=== PATIENT | female | born 1975 | race Caucasian/White ===

== ENCOUNTER 2021-08-25 05:25 | Inpatient (IN) | payer BC ==
[2021-08-25] MEDS ORDERED: Scopolamine 1.5 MG Transdermal Patch TOP SCH (05:45)
[2021-08-25] MEDS ORDERED: Celecoxib 200 MG Cap PO ONE (05:45)
[2021-08-25] MEDS ORDERED: Acetaminophen 500 MG Tab PO ONE (05:45)
[2021-08-25] MEDS ORDERED: Dextrose 5%-Lactated Ringers 1,000 ML IV SCH ×2 (06:00→10:45)
[2021-08-25] MEDS ORDERED: Lidocaine 1% with EPINEPHrine 1:100,000 50 ML MDV ONE (06:52)
[2021-08-25] MEDS ORDERED: Bupivacaine 0.5% 50 ML MDV ONE (06:52)
[2021-08-25] MEDS ORDERED: Meropenem 500 MG SDV ONE (06:52)
[2021-08-25] MEDS ORDERED: cefOXitin 2 GM Vial ONE (06:56)
[2021-08-25] MEDS ORDERED: Succinylcholine 200 MG/10 ML MDV ONE (07:07)
[2021-08-25] MEDS ORDERED: Rocuronium 50 MG/5 ML Vial ONE (07:07)
[2021-08-25] MEDS ORDERED: diphenhydrAMINE 50 MG/ML SDV ONE (07:07)
[2021-08-25] MEDS ORDERED: Dexamethasone 4 MG/ML SDV ONE (07:07)
[2021-08-25] MEDS ORDERED: Propofol 200 MG/20 ML SDV ONE (07:07)
[2021-08-25] MEDS ORDERED: Ondansetron 4 MG/2 ML SDV ONE (07:07)
[2021-08-25] MEDS ORDERED: Glycopyrrolate 0.2 MG/ML 5 ML MDV ONE (07:07)
[2021-08-25] MEDS ORDERED: Neostigmine Methylsulfate 1 MG/ML 5 ML Syringe ONE (07:07)
[2021-08-25] MEDS ORDERED: fentaNYL 250 MCG/5 ML SDV ONE (07:09)
[2021-08-25] MEDS ORDERED: cefOXitin 2 GM in Sodium Chloride 0.9% 50 ML IV ONE (07:15)
[2021-08-25] MEDS ORDERED: Ketamine 500 MG/5 ML MDV IV SCH (07:30)
[2021-08-25] MEDS ORDERED: Ketamine 19 MG in Sodium Chloride 0.9% 19.81 ML IV SCH (07:30)
[2021-08-25] MEDS ORDERED: Cyclobenzaprine 10 MG Tab PO PRN (10:31)
[2021-08-25] MEDS ORDERED: Melatonin 3 MG Tab PO PRN (10:38)
[2021-08-25] MEDS ORDERED: Morphine 2 MG/ML SYRINGE IVPUSH PRN (11:00)
[2021-08-25] MEDS ORDERED: Labetalol 20 MG/4 ML Syringe IVPUSH PRN (11:00)
[2021-08-25] MEDS ORDERED: diphenhydrAMINE 50 MG/ML SDV IVPUSH PRN (11:00)
[2021-08-25] MEDS ORDERED: Morphine 4 MG/ML Syringe IVPUSH PRN (11:00)
[2021-08-25] MEDS ORDERED: Ondansetron 4 MG/2 ML SDV IVPUSH PRN (11:00)
[2021-08-25] MEDS ORDERED: oxyCODONE 5 MG Tab PO PRN (11:00)
[2021-08-25] MEDS ORDERED: Metoclopramide 10 MG/2 ML SDV IVPUSH PRN (11:00)
[2021-08-25] MEDS ORDERED: Acetaminophen 500 MG Tab PO PRN (11:00)
[2021-08-25] MEDS ORDERED: hydrOXYzine HCL 100 MG/2 ML SDV IM PRN (11:00)
[2021-08-25] MEDS: traMADol 50 MG Tab PO PRN (12:38)
[2021-08-25] MEDS: cefOXitin 2 GM in Sodium Chloride 0.9% 50 ML IV SCH ×2 (13:43→20:33)
[2021-08-25] MEDS: Acetaminophen 500 MG Tab PO SCH ×2 (13:44→22:17)
[2021-08-25] MEDS ORDERED: Pantoprazole 40 MG Vial IVPUSH SCH (14:00)
[2021-08-25] MEDS ORDERED: MVI, Adult with Vitamin K 10 ML, Thiamine 200 MG, Zinc/Copper/Manganese/Selenium 1 ML i... IV SCH ×4 (16:00)
[2021-08-25] MEDS: Heparin Sodium 5,000 Units/ML Vial SUBCUT SCH (17:49)
[2021-08-25] MEDS: MELATONIN 10 MG PO SCH (20:37)
[2021-08-26] MEDS: cefOXitin 2 GM in Sodium Chloride 0.9% 50 ML IV SCH ×2 (02:35→08:59)
[2021-08-26] MEDS: traMADol 50 MG Tab PO PRN (02:43)
[2021-08-26] MEDS ORDERED: Iopamidol 612 MG/ML 50 ML SDV PO ONE (03:33)
[2021-08-26] MEDS: Acetaminophen 500 MG Tab PO SCH ×3 (06:11→21:07)
[2021-08-26] MEDS: Heparin Sodium 5,000 Units/ML Vial SUBCUT SCH ×2 (06:12→17:45)
[2021-08-26] MEDS ORDERED: Ondansetron 4 MG Tab.DIS PO PRN (07:16)
[2021-08-26] MEDS ORDERED: hydrOXYzine HCl 25 MG Tab PO PRN (07:17)
[2021-08-26] MEDS ORDERED: Acetaminophen/Caffeine 500-65 MG Tab PO PRN (07:17)
--- NOTE | 2021-08-26 08:26 | PN ---
DATE OF SERVICE: 08/26/2021 SUBJECTIVE: Luzma is postop day 1. Upper GI was normal. Oral intake 1550, output 1900. KALEB drain put out 80 mL of a light pink drainage. Vital signs have been stable. She has been up ambulating. Her IV did infiltrate, once was replaced, and that IV is infiltrating again. She is reporting a headache. Has a history of migraine headaches. Last tried Emgality injection, but she had stopped that because of hair loss. REVIEW OF SYSTEMS: Remainder of review of systems negative for any pertinent positives and negatives. OBJECTIVE: GENERAL: Luzma Nunez is a pleasant 46-year-old female. She is alert and oriented. VITAL SIGNS: TPR 97.5, 76, 16, blood pressure 115/64. HEENT: Negative. NECK: Supple. HEART: Regular rate and rhythm. LUNGS: Clear. ABDOMEN: Dressing dry and intact. Abdominal binder is on. KALEB drain as above. EXTREMITIES: Without peripheral edema. ASSESSMENT: Diagnostic laparoscopy with: 1. Laparoscopic sleeve gastrectomy. 2. Liver biopsy. 3. Repair of paraesophageal diaphragmatic hernia. Date of procedure 08/25/2021. Surgeon: Feng Pacheco MD. PLAN: 1. Discontinue IV. 2. Dressing off. May shower. 3. Step 2 gastric bypass diet without cereal. 4. Atarax 50 mg p.o. q.4 hours p.r.n. pain. 5. Excedrin tension headache, take 2 p.o. q.6 hours p.r.n. headache. Discontinue telemetry. Discontinue continuous pulse ox. 6. Communication order, 3 med cups to drink one q.20 minutes. Record at bedside. 7. We will evaluate p.r.n. or in a.m. Sydnie Barry PA-C /[id number]
[2021-08-26] MEDS: Celecoxib 200 MG Cap PO SCH ×2 (09:00→21:07)
[2021-08-26] MEDS ORDERED: SCOPOLAMINE PATCH CHECK TOP SCH (09:00)
--- NOTE | 2021-08-26 09:31 | CR ---
[facility] HISTORY: Gastric surgery FINDINGS: Patient swallowed water-soluble contrast. Upright views of the abdomen show no evidence of extravasation or obstruction. There is a surgical drain in the left upper quadrant. IMPRESSION: Status post gastric surgery No extravasation or obstruction seen
[2021-08-26] MEDS ORDERED: Pantoprazole 40 MG Delayed-Release Granules 1 Packet PO SCH (16:30)
[2021-08-26] MEDS: MELATONIN 10 MG PO SCH (21:07)
[2021-08-27] MEDS: Heparin Sodium 5,000 Units/ML Vial SUBCUT SCH (05:10)
[2021-08-27] MEDS: Acetaminophen 500 MG Tab PO SCH (05:10)
[2021-08-27] MEDS ORDERED: Cyanocobalamin (Vitamin B12) 1,000 MCG/ML SDV IM ONE (09:00)
[2021-08-27] MEDS: Celecoxib 200 MG Cap PO SCH (09:02)
--- NOTE | 2021-08-27 11:13 | DISCH ---
ADMISSION DIAGNOSES: Morbid obesity, BMI 38.2, chronic fatigue, dysthymia, history of breast cancer, migraine headaches. DISCHARGE DIAGNOSES: Diagnostic laparoscopy with: 1. Laparoscopic sleeve gastrectomy. 2. Liver biopsy. 3. Repair of paraesophageal diaphragmatic hernia. POSTOPERATIVE DIAGNOSES: 1. Morbid obesity. 2. Hepatomegaly. 3. Paraesophageal diaphragmatic hernia. Date of procedure: 08/25/2021. Surgeon: Feng Pacheco MD. HISTORY: Luzma Nunez is a 46-year-old female with longstanding history of morbid obesity and increasing comorbidities. After preoperative evaluation and discussion of possible risks and possible complications, she wished to proceed with surgical procedure. HOSPITAL COURSE: Luzma had her surgery on 08/25/2021. She had no operative complications. On postoperative day #1, her upper GI was normal. She was started on step 2 gastric bypass diet without cereal. Her pain was controlled with energy protocol. She was given Excedrin Tension Headache 2 p.o. as needed for headache. Oral intake was adequate. Vital signs were stable. She received adequate dietary instruction and a vitamin B12 1000 mcg IM injection. Luzma was able to be discharged on postoperative day 2, 08/27/2021 with no complications. PHYSICAL EXAMINATION: GENERAL: Luzma is a pleasant 46-year-old female. VITAL SIGNS: Height is 5 feet 8.5 inches, weight 255 pounds, BMI 38.2. TPR is 97.1, 79, 18. Blood pressure 101/56. HEENT: Negative. NECK: Supple. HEART: Regular rate and rhythm. LUNGS: Clear. ABDOMEN: KALEB drain will be removed, 4x4s will be placed over it. Incisions look good. Abdominal binder is on. EXTREMITIES: Without peripheral edema. DISPOSITION: Discharged to home. CONDITION: Stable and improving. FOLLOWUP: Followup appointment on 09/07/2021 at 11 a.m. HOME MEDICATIONS: 1. Celebrex 200 mg p.o. b.i.d., #28. 2. Hydroxyzine 50 mg p.o. q.4 hours p.r.n. pain, #30. 3. Zofran ODT 4 mg p.o. q.4 hours p.r.n. nausea or vomiting, #30. She is to resume home medications. Instructed to discontinue taking any vitamins or supplements until after 1st postop appointment. DIET: Step 2 gastric bypass diet with no cereal until 09/25/2021. Drink 8 to 10 glasses of water a day. ACTIVITY: No lifting greater than 10 pounds for 2 weeks. OTHER ACTIVITY: Walk 6 times daily inside your home. Driving: Do not drive for 1 week. Shower/bathing: May shower. Wound incision care: Keep operative site clean and dry. Wear abdominal binder for 2 weeks and then as tolerated. Notify provider if any fever, increased pain, swelling, redness, drainage, nausea, vomiting. SPECIAL INSTRUCTIONS: 1. Use incentive spirometer 10 times every hour while awake. 2. Walk 3 times for every 1 hour you are riding in the car. /[id number]
--- NOTE | 2021-09-02 10:39 | OR ---
DATE OF PROCEDURE: 08/25/2021 SURGEON: Feng Pacheco MD PREOPERATIVE DIAGNOSIS: Morbid obesity. POSTOPERATIVE DIAGNOSES: 1. Morbid obesity. 2. Marked hepatomegaly. 3. Paraesophageal diaphragmatic hernia. OPERATIVE PROCEDURE: Diagnostic laparoscopy with: 1. Laparoscopic sleeve gastrectomy (93574). 2. Panfilo-Cut needle liver biopsy (83102). 3. Repair of paraesophageal diaphragmatic hernia (74512). ANESTHESIA: General. CERTIFIED OPTICIAN: JOJO Hercules. INDICATIONS FOR PROCEDURE: This is a 46-year-old female presenting with longstanding morbid obesity and increasingly significant comorbidities. After preoperative evaluation and discussion, she wished to proceed with a sleeve gastrectomy. Potential risks of the procedure including bleeding, infection, injury to underlying viscera, leaks from the gastrectomy staple line, as well as remote possibility of cardiopulmonary, septic, or hemorrhagic complications leading to were discussed, and the patient wishes to proceed. DETAILS OF PROCEDURE: The patient was taken to the operating room. After general endotracheal anesthesia was induced, she was placed in a lithotomy position and the abdomen prepped and draped. 15 cm inferior and 5 cm left of the xiphoid process, a transverse incision was made and the peritoneal cavity entered under direct vision with an Optiview trocar, inflated to 15 mmHg pressure of CO2. The laparoscope was then reinserted. No underlying trocar insertion site injuries were seen. Following this, bilateral transversus abdominis plane blocks were placed and 5 additional trocars were placed across the upper and mid abdomen. The liver was noted to be quite fatty infiltrated and enlarged, and Panfilo-Cut needle biopsy was obtained from left lobe of liver. Minimal bleeding from the biopsy sites was controlled with electrocautery. At this point, the liver was retracted anteriorly. The patient was noted to have a fairly large paraesophageal diaphragmatic hernia. This was retracted downward and peritoneum was initially divided anteriorly. The peritoneum along the junction of the esophagus and crura on each side was then divided few centimeters inferiorly and this allowed eventual dissection of the esophagus circumferentially just above the esophagogastric junction. Once this was dissected further, an area of a 4 cm segment of intra-abdominal esophagus was obtained. Right posterior crural repair was accomplished with 0 Ethibond sutures reinforced with PTFE pledgets. Given the size of the hernia, this was also then reinforced with a Phasix ST mesh. This was cut in a horseshoe configuration and placed over the crural repair and affixed to the crura on each side with titanium tacking screws. This is an absorbable mesh that will leave generally a more dense scar at the point of the crural repair. At this point, attention was taken to the sleeve gastrectomy itself. Beginning in the mid greater curvature, the omentum was divided away with Harmonic Scalpel. This dissection continued proximally across the short gastric vessels including the highest and posterior short gastric vessels and the fundus was then skeletonized away from the left rommel to avoid a cholestatic tissue in that area. The dissection then continued dividing the omentum distally to a point 2 cm proximal to the pylorus. The initial firings of the ROSE MARIE stapler were then mapped out with electrocautery going across the antrum, then underneath the incisura angularis with care taken to avoid over tightening of the stomach in that area. The first 3 firings were the unreinforced ROSE MARIE black loads. Following this, a 32-[place] suction tube was placed orally across the esophagogastric junction and into the lesser curvature of the stomach and up against the surface where suction was applied. Remainder of the sleeve gastrectomy was accomplished with a combination of reinforced black and purple loads, and at that point, the gastrectomy appeared to be satisfactorily completed. Stomach was placed off to the side. Fibrin sealant was then placed along the length of the gastrectomy staple line, focusing particularly on the area of the esophagogastric junction. The omentum was then tacked up against this area of esophagogastric junction with some 3-0 Vicryl stitch, and following this, with the tube still in place, air was injected in the stomach while the gastrectomy staple line was submerged with antibiotic-containing saline solution, the remaining stomach was distended, no air leaks or bubbles were seen. The gastric tube was then removed. At this point, the gastric specimen was removed through the left lateral trocar site and a Osiel-Sarkar drain was placed through the left lateral trocar site as well and positioned across the area of the esophagogastric junction from there into the splenic fossa. The trocars were removed and the peritoneal cavity deflated. Incision was closed with some 4-0 Vicryl skin stitch, which was also used to fix the drain. The patient was taken to the recovery room in satisfactory condition. Physician executive assistant to president, Sydnie Barry, played an essential role in assisting in this case, helping to position the patient, retract structures as needed, as well as suturing and cutting sutures when indicated. Her presence improved patient safety and decreased operative time. Feng Pacheco MD /[id number]
== END 2021-08-27 09:21 | disposition home or self-care (01) | DRG 403 ==
LOC: JP.SDSSCHI 05:25 → JP.SDS 05:25 → EDSTATUS 07:15 → UNDOADMIN 09:05 → JP.MS 09:05
PROVIDERS: ADMIT Surgery; ATTEND Surgery
PROC: 0DB64Z3 Excision of Stomach, Percutaneous Endoscopic Approach, Vertical (ICD-10-PCS; principal; 2021-08-25)
PROC: 0FB24ZX Excision of Left Lobe Liver, Percutaneous Endoscopic Approach, Diagnostic (ICD-10-PCS; 2021-08-25)
PROC: 0BQT4ZZ Repair Diaphragm, Percutaneous Endoscopic Approach (ICD-10-PCS; 2021-08-25)
DX: E66.01 Morbid (severe) obesity due to excess calories (principal); R16.0 Hepatomegaly, not elsewhere classified; K44.9 Diaphragmatic hernia without obstruction or gangrene; G44.209 Tension-type headache, unspecified, not intractable; F32.A Depression, unspecified; Z68.38 Body mass index [BMI] 38.0-38.9, adult; Z85.3 Personal history of malignant neoplasm of breast; Z87.891 Personal history of nicotine dependence; Z88.8 Allergy status to other drugs, medicaments and biological substances
CPT/HCPCS: 36415; 74240; 74240-26; 82947; 86850; 86900; 86901; A9270-GY; C1713; C1781; C9113; J0131; J0171; J0330; J0694; J1100; J1200; J1644; J2185; J2405; J2704; J2710; J2795; J3010; J3410; J3411; J3420; J3490; J7121; Q9967

== ENCOUNTER 2022-11-11 05:59 | Day surgery (SDC) | payer BC ==
[2022-11-11] MEDS ORDERED: Dextrose 5%-Lactated Ringers 1,000 ML IV SCH (06:30)
[2022-11-11] MEDS ORDERED: Celecoxib 200 MG Cap PO ONE (06:30)
[2022-11-11] MEDS ORDERED: Bupivacaine 0.5%/EPINEPHrine 1:200,000 50 ML MDV ONE (06:43)
[2022-11-11] MEDS ORDERED: Lidocaine 1% 50 ML MDV ONE (06:43)
[2022-11-11] MEDS ORDERED: fentaNYL 250 MCG/5 ML SDV ONE (07:07)
[2022-11-11] MEDS ORDERED: Neostigmine Methylsulfate 1 MG/ML 5 ML Syringe ONE (07:07)
[2022-11-11] MEDS ORDERED: Glycopyrrolate 0.2 MG/ML 5 ML MDV ONE (07:07)
[2022-11-11] MEDS ORDERED: Ondansetron 4 MG/2 ML SDV ONE (07:07)
[2022-11-11] MEDS ORDERED: Dexamethasone 4 MG/ML SDV ONE (07:07)
[2022-11-11] MEDS ORDERED: Propofol 200 MG/20 ML SDV ONE (07:07)
[2022-11-11] MEDS ORDERED: Rocuronium 50 MG/5 ML Vial ONE (07:07)
[2022-11-11] MEDS ORDERED: Scopolamine 1.5 MG Transdermal Patch TOP ONE (07:15)
[2022-11-11] MEDS ORDERED: Indocyanine Green 25 MG SDV IV ONE (07:30)
[2022-11-11] MEDS ORDERED: Ropivacaine 40 ML, dexAMETHasone 8 MG, EPINEPHrine 0.4 MG, Sodium Chloride 0.9% 37.6 ML NERVRT SCH ×4 (08:00)
[2022-11-11] MEDS ORDERED: Ketamine 500 MG/5 ML MDV IV SCH (08:00)
[2022-11-11] MEDS ORDERED: Ketamine 19 MG in Sodium Chloride 0.9% 19.81 ML IV SCH (08:00)
[2022-11-11] MEDS: cefOXitin 2 GM in Sodium Chloride 0.9% 50 ML IV ONE (08:23)
[2022-11-11] MEDS ORDERED: Lactated Ringers 1,000 ML ONE (09:03)
[2022-11-11] MEDS ORDERED: Triamcinolone Acetonide 0.1% Crm 80 GM Tube TOP PRN (09:18)
[2022-11-11] MEDS ORDERED: Ketorolac 30 MG/ML SDV ONE (09:28)
[2022-11-11] MEDS ORDERED: Triamcinolone Acetonide 40 MG/ML 1 ML SDV ONE (09:36)
== END 2022-11-11 14:04 | disposition home or self-care (01) ==
LOC: JP.SDS 05:59
PROVIDERS: ATTEND Surgery
DX: K80.10 Calculus of gallbladder with chronic cholecystitis without obstruction (principal); K43.0 Incisional hernia with obstruction, without gangrene; L90.5 Scar conditions and fibrosis of skin; F32.A Depression, unspecified; E78.00 Pure hypercholesterolemia, unspecified; E66.9 Obesity, unspecified; F17.210 Nicotine dependence, cigarettes, uncomplicated; Z98.84 Bariatric surgery status; Z68.28 Body mass index [BMI] 28.0-28.9, adult
CPT/HCPCS: 13101; 47562; 88302; 88304; A9270; J0131; J0171; J0694; J1100; J1790; J2001; J2405; J2704; J2710; J2795; J3010; J3301; J3490; J7120; J7121; J1885